=== PATIENT | male | born 1985 | race African-American/Black ===

== ENCOUNTER → 2016-10-04 | Outpatient (CLI) | payer MEDICAID, OTHER | LOC: RAD 08:51 | PROVIDERS: ATTEND Urology | DX: R10.9 Unspecified abdominal pain (principal); N40.0 Benign prostatic hyperplasia without lower urinary tract symptoms | CPT/HCPCS: 74178; 82565 ==

== ENCOUNTER 2017-02-05 22:29 | Emergency (ER) | payer MEDICAID, OTHER ==
[2017-02-05 22:36] VITALS: BP 118/90
[2017-02-05] MEDS ORDERED: LIDOCAINE 1% INJ (10 MG/ML) 10 ML MDV INJ ONE (22:56)
[2017-02-05] MEDS ORDERED: LIDOCAINE 1% INJ-PF (10 MG/ML) 30 ML SDV ONE (23:05)
--- NOTE | 2017-02-05 23:16 | ER Document Report ---
ED General - General Chief Complaint: Foreign Body in Ear Stated Complaint: FOREIGN OBJECT IN EAR Time Seen by Provider: 02/05/17 22:51 Mode of Arrival: Ambulatory Information source: Patient Notes: 11-year-old male presents with complaints of Bug in left ear just prior to arrival. Patient feels something is moving in there denies any other concerns TRAVEL OUTSIDE OF THE [place] IN LAST 30 DAYS: No - HPI Onset: Just prior to arrival Onset/Duration: Sudden Quality of pain: Achy Severity: Mild Pain Level: 1 Associated symptoms: Earache Exacerbated by: Denies Similar symptoms previously: No Recently seen / treated by doctor: No Past Medical History - Social History Smoking Status: Never Smoker Cigarette use (# per day): No Chew tobacco use (# tins/day): No Smoking Education Provided: No Family History: Reviewed & Not Pertinent Patient has suicidal ideation: No Patient has homicidal ideation: No Renal/ Medical History: Denies: Hx Peritoneal Dialysis Review of Systems - Review of Systems Notes: PHYSICAL EXAMINATION: GENERAL: Well-appearing, well-nourished and in no acute distress. HEAD: Atraumatic, normocephalic. EYES: Pupils equal round extraocular movements intact, conjunctiva are normal. ENT: Nares patent Bug in left ear NECK: Normal range of motion LUNGS: No respiratory distress Musculoskeletal: Normal range of motion NEUROLOGICAL: Normal speech, normal gait. PSYCH: Normal mood, normal affect. SKIN: Warm, Dry, normal turgor, no rashes or lesions noted. Physical Exam - Vital signs Vitals: Temp Pulse Resp BP Pulse Ox 97.9 F 62 16 118/90 H 100 02/05/17 22:35 02/05/17 22:35 02/05/17 22:35 02/05/17 22:35 02/05/17 22:35 Course - Re-evaluation Re-evalutation: 02/05/17 23:35 ear will be flushed with lidocaine and tetracaine alcohol 02/06/17 00:27 02/06/17 00:35 After multiple attempts to flush, fragments of the bug were removed with currette , patient has a superficial ear abrasion prior to her intervention from him scratching his ear. Otherwise patient will be started on antibiotics and given ENT follow-up for reevaluation approximately three quarters of the bug were removed successfully After performing a Medical Screening Examination, I estimate there is LOW risk for ACUTE CORONARY SYNDROME, RESPIRATORY FAILURE, SEPSIS OR MENINGITIS, thus I consider the discharge disposition reasonable. I have reevaluated this patient multiple times and no significant life threatening changes are noted. The patient and I have discussed the diagnosis and risks, and we agree with discharging home with close follow-up. We also discussed returning to the Emergency Department immediately if new or worsening symptoms occur. We have discussed the symptoms which are most concerning (e.g., changing or worsening pain, trouble swallowing or breathing, neck stiffness, fever) that necessitate immediate return. - Vital Signs Vital signs: Temp Pulse Resp BP Pulse Ox 97.9 F 62 16 118/90 H 100 02/05/17 22:35 02/05/17 22:35 02/05/17 22:35 02/05/17 22:35 02/05/17 22:35 Procedures - Additional Procedures foreign body removal Time performed: 00:36 - using currette, saline and alcohol flushes foreign body was removed, small amount of blood noted, risks explained to patient Discharge - Discharge Clinical Impression: Foreign body in ear Qualifiers: Encounter type: initial encounter Laterality: left Qualified Code(s): T16.2XXA - Foreign body in left ear, initial encounter Condition: Stable Disposition: HOME, SELF-CARE Additional Instructions: Foreign Object in the Ear Examination showed a foreign object in the ear. This can cause pain, swelling, infection, and decreased hearing. An ear foreign body should be removed promptly. Usually no further treatment is necessary following removal. If infection is already present, we prescribe antibiotic drops. Sometimes the object damages the eardrum. If hearing is not normal, or if an obvious injury was seen, another checkup is necessary. If there is continued drainage, continued earache, fever, headache, or hearing loss, come back for reexamination. Please contact the following office for an appointment tomorrow or returm immediately if there are any other concerns [facility] Address: [address] [place] [id number] Prescriptions: Amoxicillin 875 mg PO BID #20 tablet Referrals: HARVEY REYES DO [Primary Care Provider] - Follow up as needed
[2017-02-06] MEDS ORDERED: HYDROCODONE/ACETAMINOPHEN 5-325 MG 6 TAB/DSPK PO SCH (00:30)
[2017-02-06] MEDS ORDERED: HYDROCODONE/ACETAMINOPHEN 5-325 MG 6 TAB/DSPK PO ONE (01:00)
== END 2017-02-06 00:40 | disposition home or self-care (01) ==
LOC: ER 22:29
DX: T16.2XXA Foreign body in left ear, initial encounter (principal)
CPT/HCPCS: 99282

== ENCOUNTER 2018-06-05 06:58 | Emergency (ER) | payer OTHER ==
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
[2018-06-05] MEDS ORDERED: KETOROLAC TROMETHAMINE 60 MG/2 ML SDV IM ONE (08:03)
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
[2018-06-05 09:38] VITALS: BP 124/67
== END 2018-06-05 09:38 | disposition home or self-care (01) ==
LOC: ER 06:58
DX: M54.5 Low back pain (principal); V43.52XA Car driver injured in collision with other type car in traffic accident, initial encounter
CPT/HCPCS: 99284; 96372; 72110; J1885